=== PATIENT | female | born 1970 | race Two or more races ===

== ENCOUNTER 2018-04-06 03:19 | Inpatient (IN) | payer MEDICAID ==
[~2018-04-06] VITALS: Ht 152.4 cm; Wt 75.7 kg
[2018-04-06 04:16] LABS: BASOPHILS % (AUTO) 0.7 % (0.0-2.0); EOSINOPHILS % (AUTO) 0.5 % (1.0-6.0); HEMATOCRIT 43.2 % (36-46); LYMPHOCYTES # (AUTO) 1.6 K/uL (1.0-4.8); LYMPHOCYTES % (AUTO) 23.5 % (22.0-44.0); MEAN CORPUSCULAR HEMOGLOBIN 27.4 pg (26.0-34.0); MEAN CORPUSCULAR HGB CONC 34.9 G/dL (31.0-37.0); MEAN CORPUSCULAR VOLUME 79 fL (80-100); MONOCYTES # (AUTO) 0.4 K/uL (0.1-1.0); MONOCYTES % (AUTO) 6.1 % (2.0-9.0); NEUTROPHILS # (AUTO) 4.8 K/uL (1.8-7.7); NEUTROPHILS % (AUTO) 69.2 % (40.0-70.0); PLATELET COUNT (AUTO) 237 K/uL (150-450); RED BLOOD CELL COUNT(AUTO) 5.49 MIL/uL (4.00-5.20)
[2018-04-06 04:21] LABS: ANION GAP 15 mmol/L (8-16); CALCIUM, TOTAL 9.4 mg/dL (8.8-10.5); CARBON DIOXIDE 21 mmol/L (22-29); CHLORIDE 103 mmol/L (98-107); GLOMERULAR FILTR. RATE CALC > 60 mL/min (>60); GLUCOSE,RANDOM 118 mg/dL (70-110); POTASSIUM 3.3 mmol/L (3.5-5.1); SODIUM SERUM 139 mmol/L (136-145); UREA NITROGEN, BLOOD 21 mg/dL (7-18)
[2018-04-06 04:27] LABS: ALANINE AMINOTRANSFERASE 32 U/L (12-78); ALBUMIN 4.1 g/dL (3.4-5.0); ALKALINE PHOSPHATASE 90 U/L (46-116); ASPARTATE AMINOTRANSFERASE 41 U/L (15-37); BILIRUBIN,TOTAL 0.7 mg/dL (0.1-1.0); TOTAL PROTEIN, SERUM 8.5 g/dL (6.4-8.2)
[2018-04-06] MEDS ORDERED: ZOLPIDEM TARTRATE 10 MG TABLET PO PRN (06:15)
[2018-04-06 10:35] VITALS: BP 123/76
[2018-04-06] MEDS: POTASSIUM CHLORIDE 20 MEQ ER TABLET PO ONE ×2 (12:00→12:27)
[2018-04-06] MEDS ORDERED: PNEUMOCOCCAL VACCINE POLYVALENT 0.5 ML VIAL [PPSV23] IM ONE (12:45)
[2018-04-06 16:42] VITALS: BP 125/65
[2018-04-06] MEDS: HALOPERIDOL 5 MG TABLET PO PRN (17:00)
[2018-04-06] MEDS: LORazepam 2 MG TABLET PO PRN (17:00)
[2018-04-06] MEDS: BACITRACIN 28.4 GM OINTMENT TP SCH (21:04)
[2018-04-07] MEDS: BACITRACIN 28.4 GM OINTMENT TP SCH ×2 (08:07→18:04)
[2018-04-07 08:35] LABS: BASOPHILS % (AUTO) 0.5 % (0.0-2.0); EOSINOPHILS % (AUTO) 1.6 % (1.0-6.0); HEMATOCRIT 39.9 % (36-46); HEMOGLOBIN 13.6 g/dL (12.0-16.0); LYMPHOCYTES # (AUTO) 1.7 K/uL (1.0-4.8); LYMPHOCYTES % (AUTO) 32.5 % (22.0-44.0); MEAN CORPUSCULAR HGB CONC 33.9 G/dL (31.0-37.0); MEAN CORPUSCULAR VOLUME 80 fL (80-100); MONOCYTES # (AUTO) 0.5 K/uL (0.1-1.0); MONOCYTES % (AUTO) 8.7 % (2.0-9.0); NEUTROPHILS % (AUTO) 56.7 % (40.0-70.0); PLATELET COUNT (AUTO) 227 K/uL (150-450); RED BLOOD CELL COUNT(AUTO) 5.02 MIL/uL (4.00-5.20)
[2018-04-07 09:01] LABS: HEMOGLOBIN A1C 5.2 % (4.5-6.2)
[2018-04-07 09:32] LABS: ALANINE AMINOTRANSFERASE 31 U/L (12-78); ALBUMIN 3.5 g/dL (3.4-5.0); ALKALINE PHOSPHATASE 68 U/L (46-116); ANION GAP 7 mmol/L (8-16); ASPARTATE AMINOTRANSFERASE 27 U/L (15-37); BILIRUBIN,TOTAL 0.5 mg/dL (0.1-1.0); CALCIUM, TOTAL 9.1 mg/dL (8.8-10.5); CARBON DIOXIDE 31 mmol/L (22-29); CHLORIDE 107 mmol/L (98-107); CHOLESTEROL 90 mg/dL (131-200); CREATININE 0.65 mg/dL (0.60-1.30); FREE T4 (FREE THYROXINE) 1.19 ng/dL (0.76-1.46); GLOMERULAR FILTR. RATE CALC > 60 mL/min (>60); GLUCOSE,RANDOM 89 mg/dL (70-110); HCG,QUANTITATIVE 2 mIU/mL (0-6); HDL CHOLESTEROL 45 mg/dL (40-60); LDL CHOL (CALC.) 37 mg/dL (0-130); POTASSIUM 3.3 mmol/L (3.5-5.1); SODIUM SERUM 145 mmol/L (136-145); THYROID STIMULATING HORMONE 0.86 uIU/mL (0.36-3.74); TOTAL PROTEIN, SERUM 7.2 g/dL (6.4-8.2); TRIGLYCERIDES 40 mg/dL (15-150); UREA NITROGEN, BLOOD 17 mg/dL (7-18)
[2018-04-07 09:49] VITALS: BP 121/68
[2018-04-07] MEDS ORDERED: POTASSIUM CHLORIDE 20 MEQ ER TABLET PO ONE (13:00)
[2018-04-07 13:19] LABS: FOLATE SERUM 10.2 ng/mL (5.4-)
[2018-04-07 16:05] VITALS: BP 112/75
[2018-04-07] MEDS ORDERED: MAG HYDROX/AL HYDROX/SIMETH ES 30 ML SUSPENSION UDCUP PO PRN (16:15)
[2018-04-07] MEDS ORDERED: LOPERAMIDE HCL 2 MG CAPSULE PO PRN ×2 (16:15)
[2018-04-07] MEDS ORDERED: HydrOXYzine PAMOATE 50 MG CAPSULE PO PRN (16:15)
[2018-04-07] MEDS ORDERED: MAGNESIUM HYDROXIDE SUSPENSION 30 ML UDCUP PO PRN (16:15)
[2018-04-07] MEDS ORDERED: GuaiFENesin/D-METHORPHAN [SUGAR-FREE] 200-20MG/10 ML SYRUP UDCUP PO PRN (16:15)
[2018-04-07] MEDS ORDERED: PROMETHAZINE HCL 25 MG TABLET PO PRN (16:15)
[2018-04-07] MEDS ORDERED: ACETAMINOPHEN 325 MG TABLET PO PRN (16:15)
[2018-04-07] MEDS ORDERED: TUBERCULIN, PURIFIED PROTEIN DERIVATIVE 5 TU/0.1 ML SYG ID ONE (16:15)
[2018-04-07] MEDS ORDERED: CYANOCOBALAMIN 1,000 MCG/ML VIAL IM ONE (16:15)
[2018-04-07 17:05] VITALS: BP 125/74
[2018-04-07] MEDS: LORazepam 2 MG TABLET PO PRN (17:32)
[2018-04-07] MEDS: HALOPERIDOL 5 MG TABLET PO PRN (17:32)
[2018-04-07] MEDS: THIAMINE HCL 100 MG TABLET PO SCH (18:04)
[2018-04-07 18:05] VITALS: BP 111/72
[2018-04-07 19:05] VITALS: BP 113/71
[2018-04-07 20:05] VITALS: BP 118/72
[2018-04-07] MEDS: OLANZapine 5 MG RAPDIS TABLET PO SCH (21:00)
[2018-04-08 00:10] VITALS: BP 130/78
[2018-04-08 04:00] VITALS: BP 132/72
[2018-04-08 06:59] VITALS: BP 135/72
[2018-04-08 08:18] LABS: HIV 1-2 SCREEN 4TH GEN W/RFLX Non Reactive (Non Reactive)
[2018-04-08] MEDS: BACITRACIN 28.4 GM OINTMENT TP SCH ×2 (09:34→16:31)
[2018-04-08] MEDS: FOLIC ACID 1 MG TABLET PO SCH (09:34)
[2018-04-08] MEDS: NALTREXONE HCL 50 MG TABLET PO SCH (09:34)
[2018-04-08] MEDS: THIAMINE HCL 100 MG TABLET PO SCH ×2 (09:34→16:31)
[2018-04-08] MEDS: MULTIVITAMINS WITH MINERALS, THERAPEUTIC TABLET PO SCH (09:34)
[2018-04-08 16:27] VITALS: BP 121/61
[2018-04-08] MEDS: OLANZapine 5 MG RAPDIS TABLET PO SCH (21:00)
[2018-04-09 04:40] VITALS: BP 122/70
[2018-04-09 04:43] VITALS: BP 122/70
[2018-04-09] MEDS: MULTIVITAMINS WITH MINERALS, THERAPEUTIC TABLET PO SCH (09:26)
[2018-04-09] MEDS: FOLIC ACID 1 MG TABLET PO SCH (09:26)
[2018-04-09] MEDS: THIAMINE HCL 100 MG TABLET PO SCH ×2 (09:26→16:24)
[2018-04-09] MEDS: NALTREXONE HCL 50 MG TABLET PO SCH (09:26)
[2018-04-09] MEDS: BACITRACIN 28.4 GM OINTMENT TP SCH ×2 (09:26→16:24)
[2018-04-09 13:05] VITALS: BP 97/66
[2018-04-09 13:07] VITALS: BP 97/66
[2018-04-09 16:17] VITALS: BP 110/65
[2018-04-09] MEDS: HALOPERIDOL 5 MG TABLET PO PRN (16:23)
[2018-04-09] MEDS: LORazepam 2 MG TABLET PO PRN (16:23)
[2018-04-09 17:30] VITALS: BP 110/65
[2018-04-09] MEDS: OLANZapine 5 MG RAPDIS TABLET PO SCH (21:02)
[2018-04-10 04:34] VITALS: BP 114/74
[2018-04-10 04:36] VITALS: BP 114/74
[2018-04-10] MEDS: BACITRACIN 28.4 GM OINTMENT TP SCH ×2 (08:31→17:24)
[2018-04-10] MEDS: NALTREXONE HCL 50 MG TABLET PO SCH (08:31)
[2018-04-10] MEDS: THIAMINE HCL 100 MG TABLET PO SCH ×2 (08:31→16:34)
[2018-04-10] MEDS: MULTIVITAMINS WITH MINERALS, THERAPEUTIC TABLET PO SCH (08:31)
[2018-04-10] MEDS: LORazepam 2 MG TABLET PO PRN ×2 (08:31→16:34)
[2018-04-10] MEDS: FOLIC ACID 1 MG TABLET PO SCH (08:33)
[2018-04-10 13:55] VITALS: BP 102/59
[2018-04-10 14:01] VITALS: BP 102/59
[2018-04-10 16:23] VITALS: BP 119/76
[2018-04-10 16:30] VITALS: BP 119/76
[2018-04-10] MEDS: OLANZapine 10 MG RAPDIS TABLET PO SCH (20:23)
[2018-04-11 01:18] VITALS: BP 120/71
[2018-04-11] MEDS: FOLIC ACID 1 MG TABLET PO SCH (08:12)
[2018-04-11] MEDS: MULTIVITAMINS WITH MINERALS, THERAPEUTIC TABLET PO SCH (08:12)
[2018-04-11] MEDS: BACITRACIN 28.4 GM OINTMENT TP SCH ×2 (08:12→16:16)
[2018-04-11] MEDS: THIAMINE HCL 100 MG TABLET PO SCH ×2 (08:12→16:16)
[2018-04-11] MEDS: NALTREXONE HCL 50 MG TABLET PO SCH (08:12)
[2018-04-11 08:30] VITALS: BP 135/90
[2018-04-11 08:43] VITALS: BP 113/63
[2018-04-11] MEDS: LORazepam 2 MG TABLET PO PRN (16:16)
[2018-04-11 16:17] VITALS: BP 130/80
[2018-04-11] MEDS: OLANZapine 10 MG RAPDIS TABLET PO SCH (20:27)
[2018-04-12 03:58] VITALS: BP 132/77
[2018-04-12 04:09] VITALS: BP 132/77
[2018-04-12] MEDS: MULTIVITAMINS WITH MINERALS, THERAPEUTIC TABLET PO SCH (08:25)
[2018-04-12] MEDS: HALOPERIDOL 5 MG TABLET PO PRN (08:25)
[2018-04-12] MEDS: BACITRACIN 28.4 GM OINTMENT TP SCH ×2 (08:25→17:00)
[2018-04-12] MEDS: NALTREXONE HCL 50 MG TABLET PO SCH (08:25)
[2018-04-12] MEDS: LORazepam 2 MG TABLET PO PRN ×2 (08:25→16:51)
[2018-04-12] MEDS: THIAMINE HCL 100 MG TABLET PO SCH ×2 (08:25→17:00)
[2018-04-12] MEDS: FOLIC ACID 1 MG TABLET PO SCH (08:25)
[2018-04-12 08:42] VITALS: BP 111/69
[2018-04-12] MEDS: OLANZapine 10 MG RAPDIS TABLET PO SCH (20:36)
[2018-04-13 06:40] VITALS: BP 120/74
[2018-04-13] MEDS: BACITRACIN 28.4 GM OINTMENT TP SCH ×2 (08:25→16:19)
[2018-04-13] MEDS: NALTREXONE HCL 50 MG TABLET PO SCH (08:25)
[2018-04-13] MEDS: FOLIC ACID 1 MG TABLET PO SCH (08:25)
[2018-04-13] MEDS: MULTIVITAMINS WITH MINERALS, THERAPEUTIC TABLET PO SCH (08:25)
[2018-04-13] MEDS: THIAMINE HCL 100 MG TABLET PO SCH ×2 (08:25→16:18)
[2018-04-13 16:17] VITALS: BP 138/85
[2018-04-13] MEDS: LORazepam 2 MG TABLET PO PRN (16:18)
[2018-04-13] MEDS: OLANZapine 10 MG RAPDIS TABLET PO SCH (20:22)
[2018-04-14 02:00] VITALS: BP 128/74
[2018-04-14 08:26] VITALS: BP 122/68
[2018-04-14] MEDS: THIAMINE HCL 100 MG TABLET PO SCH ×2 (08:29→17:26)
[2018-04-14] MEDS: FOLIC ACID 1 MG TABLET PO SCH (08:29)
[2018-04-14] MEDS: NALTREXONE HCL 50 MG TABLET PO SCH (08:29)
[2018-04-14] MEDS: MULTIVITAMINS WITH MINERALS, THERAPEUTIC TABLET PO SCH (08:29)
[2018-04-14] MEDS: BACITRACIN 28.4 GM OINTMENT TP SCH ×2 (08:31→17:26)
[2018-04-14] MEDS: LORazepam 2 MG TABLET PO PRN ×2 (08:41→17:26)
[2018-04-14 16:46] VITALS: BP 127/75
[2018-04-14] MEDS: OLANZapine 10 MG RAPDIS TABLET PO SCH (20:56)
[2018-04-15 08:16] VITALS: BP 113/55
[2018-04-15] MEDS: FOLIC ACID 1 MG TABLET PO SCH (08:33)
[2018-04-15] MEDS: BACITRACIN 28.4 GM OINTMENT TP SCH ×2 (08:33→16:39)
[2018-04-15] MEDS: MULTIVITAMINS WITH MINERALS, THERAPEUTIC TABLET PO SCH (08:33)
[2018-04-15] MEDS: THIAMINE HCL 100 MG TABLET PO SCH ×2 (08:33→16:39)
[2018-04-15] MEDS: NALTREXONE HCL 50 MG TABLET PO SCH (08:33)
[2018-04-15 16:05] VITALS: BP 138/71
[2018-04-15] MEDS: LORazepam 2 MG TABLET PO PRN (16:39)
[2018-04-15] MEDS: OLANZapine 10 MG RAPDIS TABLET PO SCH (20:51)
[2018-04-16 08:00] VITALS: BP 108/74
[2018-04-16] MEDS: THIAMINE HCL 100 MG TABLET PO SCH ×2 (08:49→16:53)
[2018-04-16] MEDS: BACITRACIN 28.4 GM OINTMENT TP SCH (08:49)
[2018-04-16] MEDS: NALTREXONE HCL 50 MG TABLET PO SCH (08:50)
[2018-04-16] MEDS: FOLIC ACID 1 MG TABLET PO SCH (08:50)
[2018-04-16] MEDS: MULTIVITAMINS WITH MINERALS, THERAPEUTIC TABLET PO SCH (08:50)
[2018-04-16 16:11] VITALS: BP_SYST 104
[2018-04-16] MEDS: OLANZapine 10 MG RAPDIS TABLET PO SCH (20:37)
[2018-04-17 08:16] VITALS: BP 118/86
[2018-04-17] MEDS: NALTREXONE HCL 50 MG TABLET PO SCH (08:20)
[2018-04-17] MEDS: MULTIVITAMINS WITH MINERALS, THERAPEUTIC TABLET PO SCH (08:20)
[2018-04-17] MEDS: FOLIC ACID 1 MG TABLET PO SCH (08:20)
[2018-04-17] MEDS: THIAMINE HCL 100 MG TABLET PO SCH (08:20)
[2018-04-17 16:04] VITALS: BP 132/81
[2018-04-17] MEDS: LORazepam 2 MG TABLET PO PRN (16:32)
[2018-04-17] MEDS: OLANZapine 10 MG RAPDIS TABLET PO SCH (20:48)
[2018-04-18 05:21] VITALS: BP 130/78
[2018-04-18 08:19] VITALS: BP 122/72
[2018-04-18] MEDS: MULTIVITAMINS WITH MINERALS, THERAPEUTIC TABLET PO SCH (09:11)
[2018-04-18] MEDS: NALTREXONE HCL 50 MG TABLET PO SCH (09:11)
[2018-04-18] MEDS: LORazepam 2 MG TABLET PO PRN ×2 (09:11→17:55)
[2018-04-18 16:30] VITALS: BP 130/85
[2018-04-18] MEDS: HALOPERIDOL 5 MG TABLET PO PRN (17:56)
[2018-04-18] MEDS: OLANZapine 10 MG RAPDIS TABLET PO SCH (20:45)
[2018-04-19 05:39] VITALS: BP 127/72
[2018-04-19 08:19] VITALS: BP 127/73
[2018-04-19] MEDS: NALTREXONE HCL 50 MG TABLET PO SCH (08:53)
[2018-04-19] MEDS: MULTIVITAMINS WITH MINERALS, THERAPEUTIC TABLET PO SCH (08:53)
[2018-04-19 16:11] VITALS: BP 124/74
[2018-04-19] MEDS: LORazepam 2 MG TABLET PO PRN (16:57)
[2018-04-19] MEDS: OLANZapine 10 MG RAPDIS TABLET PO SCH (20:33)
[2018-04-20 06:42] VITALS: BP 122/77
[2018-04-20 08:30] VITALS: BP 121/76
[2018-04-20] MEDS: MULTIVITAMINS WITH MINERALS, THERAPEUTIC TABLET PO SCH (08:44)
[2018-04-20] MEDS: NALTREXONE HCL 50 MG TABLET PO SCH (08:44)
[2018-04-20 16:05] VITALS: BP 132/75
[2018-04-20] MEDS: LORazepam 2 MG TABLET PO PRN (16:30)
[2018-04-20] MEDS: OLANZapine 10 MG RAPDIS TABLET PO SCH (20:30)
[2018-04-21 05:58] VITALS: BP 131/77
[2018-04-21 08:34] VITALS: BP 130/77
[2018-04-21] MEDS: NALTREXONE HCL 50 MG TABLET PO SCH (09:16)
[2018-04-21] MEDS: MULTIVITAMINS WITH MINERALS, THERAPEUTIC TABLET PO SCH (09:16)
[2018-04-21] MEDS: LORazepam 2 MG TABLET PO PRN ×2 (09:16→16:46)
[2018-04-21 16:08] VITALS: BP 127/78
[2018-04-21] MEDS: HALOPERIDOL 5 MG TABLET PO PRN (16:46)
[2018-04-21] MEDS: OLANZapine 10 MG RAPDIS TABLET PO SCH (21:06)
[2018-04-22 07:07] VITALS: BP 134/80
[2018-04-22] MEDS: MULTIVITAMINS WITH MINERALS, THERAPEUTIC TABLET PO SCH (08:24)
[2018-04-22] MEDS: NALTREXONE HCL 50 MG TABLET PO SCH (08:24)
[2018-04-22 09:07] VITALS: BP 130/80
[2018-04-22 17:11] VITALS: BP 121/68
[2018-04-22] MEDS: OLANZapine 10 MG RAPDIS TABLET PO SCH (20:18)
[2018-04-23 08:10] VITALS: BP 100/56
[2018-04-23] MEDS: MULTIVITAMINS WITH MINERALS, THERAPEUTIC TABLET PO SCH (08:31)
[2018-04-23] MEDS: NALTREXONE HCL 50 MG TABLET PO SCH (08:31)
[2018-04-23 16:00] VITALS: BP 107/62
[2018-04-23] MEDS: LORazepam 2 MG TABLET PO PRN (16:09)
[2018-04-23] MEDS: OLANZapine 10 MG RAPDIS TABLET PO SCH (20:11)
[2018-04-24 03:17] VITALS: BP 104/65
[2018-04-24 08:22] VITALS: BP 106/65
[2018-04-24] MEDS: NALTREXONE HCL 50 MG TABLET PO SCH (08:43)
[2018-04-24] MEDS: MULTIVITAMINS WITH MINERALS, THERAPEUTIC TABLET PO SCH (08:43)
[2018-04-28] MEDS ORDERED: OLAN10TA3 PO (15:20)
[2018-04-28] MEDS ORDERED: NALT50TA6 PO (15:21)
== END 2018-04-24 12:45 | disposition home or self-care (01) | DRG 751 ==
LOC: EMS 03:24 → B2S 08:57 → EDBD 08:57 → B3A 11:46
PROVIDERS: ADMIT Psychiatry & Neurology Psychiatry; ATTEND Psychiatry & Neurology Psychiatry
DX: F29 Unspecified psychosis not due to a substance or known physiological condition (principal); G93.40 Encephalopathy, unspecified; F20.1 Disorganized schizophrenia; Z91.14 Patient's other noncompliance with medication regimen; F17.210 Nicotine dependence, cigarettes, uncomplicated; E87.6 Hypokalemia; F14.90 Cocaine use, unspecified, uncomplicated; R79.89 Other specified abnormal findings of blood chemistry; Z59.9 Problem related to housing and economic circumstances, unspecified; Z65.3 Problems related to other legal circumstances; Z91.83 Wandering in diseases classified elsewhere; Z71.6 Tobacco abuse counseling; Z71.51 Drug abuse counseling and surveillance of drug abuser; Z28.21 Immunization not carried out because of patient refusal
CPT/HCPCS: 80074; 82306; 82607; 82746; 83036; 83735; 84132; 84439; 84443; 86592; 87389; 99285; G0480; J3420

== ENCOUNTER 2018-10-17 01:54 | Emergency (ER) | payer MEDICAID, OTHER ==
[~2018-10-17] VITALS: Ht 160 cm; Wt 88.6 kg
[~2018-10-17 01:54] MED LIST: NALT50TA6 PO; OLAN10TA3 PO; RISP1TAB89 PO
[2018-10-17 03:26] VITALS: BP 121/75
== END 2018-10-17 03:31 | disposition home or self-care (01) ==
LOC: EMS 01:55
DX: F20.9 Schizophrenia, unspecified (principal); F17.210 Nicotine dependence, cigarettes, uncomplicated; Z13.89 Encounter for screening for other disorder